=== PATIENT | male | born 1970 | race Caucasian/White ===

== ENCOUNTER 2020-02-03 20:56 | Emergency (ER) | payer OTHER ==
[~2020-02-03] VITALS: Ht 180.3 cm; Wt 93.4 kg
[2020-02-03 21:09] VITALS: Ht 180.3 cm; Wt 93.4 kg
[2020-02-03 22:55] VITALS: BP 128/72
== END 2020-02-03 22:55 | disposition home or self-care (01) ==
LOC: ED 20:56
DX: H81.10 Benign paroxysmal vertigo, unspecified ear (principal)
CPT/HCPCS: J8597